=== PATIENT | female | born 1945 | race Caucasian/White ===

== ENCOUNTER 2017-04-17 14:19 | Outpatient (CLI) | payer MEDICARE, OTHER | END 2017-04-17 14:20 | disposition home or self-care (01) | DRG 554 | LOC: CONVCARE 14:19 | PROVIDERS: ATTEND Orthopaedic Surgery | DX: M17.11 Unilateral primary osteoarthritis, right knee (principal) | CPT/HCPCS: 73560 ==

== ENCOUNTER 2017-12-19 18:11 | Inpatient (IN) | payer MEDICARE, OTHER ==
[2017-12-19] MEDS: SODIUM CHLORIDE 0.9% FLUSH 10 ML SOL IV PRN ×2 (18:20→21:06)
[2017-12-19] MEDS ORDERED: DILTIAZEM 5 MG/ML SOL IV ONE ×3 (18:22→18:28)
[2017-12-19] MEDS ORDERED: SODIUM CHLORIDE 0.9% 1000ML 500 ML IV SCH (18:30)
[2017-12-19 18:34] LABS: BASOPHILS % (AUTO) 1 % (0-3); EOSINOPHILS % (AUTO) 3 % (0-9); HEMATOCRIT 42 % (35-47); HEMOGLOBIN 13.9 gm/dl (12.0-15.5); LYMPHOCYTES % (AUTO) 27.77 % (10-50); MEAN CORPUSCULAR HEMOGLOBIN 31.5 pg (27.0-32.0); MEAN CORPUSCULAR HGB CONC 32.9 gm/dl (32.0-36.0); MEAN CORPUSCULAR VOLUME 96 fL (81-99); MONOCYTES % (AUTO) 5.9 % (0-12)
[2017-12-19] MEDS ORDERED: METOPROLOL TARTRATE 5 MG/5 ML SOL IV ONE ×3 (18:38→18:59)
[2017-12-19] MEDS: METOPROLOL TARTRATE 5 MG/5 ML SOL IV SCH ×3 (18:40→18:55)
[2017-12-19 18:46] LABS: INR 1.11 (0.86-1.12)
[2017-12-19 18:52] LABS: ALKALINE PHOSPHATASE 87 IU/L (46-116); ALT 64 IU/L (14-63); AST 32 IU/L (15-37); BILIRUBIN,TOTAL 0.5 mg/dl (0.2-1.0); BLOOD UREA NITROGEN 12 mg/dl (7-18); CALCIUM 8.3 mg/dl (8.5-10.1); CARBON DIOXIDE 28.3 mEq/L (21-32); CHLORIDE 104 mMol/L (98-107); CREATININE 0.71 mg/dl (0.60-1.00); GLOM FILT RATE 81 mL/min (>60); GLUCOSE 110 mg/dl (74-106); POTASSIUM 3.8 mMol/L (3.5-5.1); SODIUM 141 mMol/L (136-145); TOTAL PROTEIN 6.6 gm/dl (6.4-8.2); TROP I < 0.017 ng/ml (0.000-0.056)
[2017-12-19] MEDS ORDERED: DILTIAZEM 5 MG/ML 125 MG in SODIUM CHLORIDE 0.9% 100 ML 100 ML IV SCH (19:45)
[2017-12-19] MEDS ORDERED: METOPROLOL TARTRATE 50 MG TAB PO SCH (21:00)
[2017-12-19] MEDS: ENOXAPARIN 40 MG SOL SC SCH (21:04)
[2017-12-19] MEDS: METOPROLOL TARTRATE 50 MG TAB PO SCH (21:05)
[2017-12-19] MEDS: OXYCODONE HYDROCHLORIDE 5 MG TAB PO PRN (21:05)
[2017-12-19] MEDS: CELECOXIB 100 MG CAP PO SCH (21:05)
[2017-12-19] MEDS: SODIUM CHLORIDE 0.9% 1000ML 1,000 ML IV SCH (21:11)
[2017-12-20] MEDS: ACETAMINOPHEN 500 MG 500 MG TAB PO PRN ×2 (00:18→13:29)
[2017-12-20] MEDS: SODIUM CHLORIDE 0.9% 1000ML 1,000 ML IV SCH (05:28)
[2017-12-20] MEDS ORDERED: LEVOTHYROXINE SODIUM 50 MCG TAB PO SCH (07:00)
[2017-12-20 07:55] LABS: BLOOD UREA NITROGEN 11 mg/dl (7-18); CALCIUM 7.9 mg/dl (8.5-10.1); CARBON DIOXIDE 31.5 mEq/L (21-32); CHLORIDE 107 mMol/L (98-107); CREATININE 0.73 mg/dl (0.60-1.00); GLOM FILT RATE 78 mL/min (>60); GLUCOSE 87 mg/dl (74-106); POTASSIUM 3.9 mMol/L (3.5-5.1); SODIUM 145 mMol/L (136-145); TROP I < 0.017 ng/ml (0.000-0.056)
[2017-12-20 08:13] VITALS: BP 155/82; PULSE 72; RESP 16; TEMP 98.5; O2SAT 98
[2017-12-20] MEDS ORDERED: PANTOPRAZOLE SODIUM 40 MG ECT PO SCH (09:00)
[2017-12-20] MEDS ORDERED: LEVOTHYROXINE 0.025MG 0.025 MG TAB PO SCH (09:00)
[2017-12-20] MEDS ORDERED: MULTIVITAMIN2 1 EA TAB PO SCH (09:00)
[2017-12-20] MEDS ORDERED: ASPIRIN 81 MG CHEWABLE CTB PO SCH (09:00)
[2017-12-20] MEDS ORDERED: OMEPRAZOLE 20 MG CAPSULE PO SCH (09:00)
[2017-12-20] MEDS ORDERED: DILTIAZEM ER 120 MG C24 PO SCH (09:00)
[2017-12-20] MEDS ORDERED: LUTEIN PO SCH (09:00)
[2017-12-20] MEDS ORDERED: DILTIAZEM HCL 120 MG PO SCH (09:00)
[2017-12-20] MEDS ORDERED: BUPROPION HCL 200 MG T12 PO SCH (09:00)
[2017-12-20] MEDS ORDERED: HRB PO SCH (09:00)
[2017-12-20] MEDS ORDERED: MAGNESIUM GLYCINATE 100 MG PO SCH (09:00)
[2017-12-20] MEDS ORDERED: [UNRECOGNIZED DRUG - OTHER] PO SCH (09:00)
[2017-12-20] MEDS ORDERED: SERTRALINE HYDROCHLORIDE 50 MG TAB PO SCH (09:00)
[2017-12-20] MEDS ORDERED: IRON PO SCH (09:00)
[2017-12-20] MEDS: ENOXAPARIN 40 MG SOL SC SCH (09:06)
[2017-12-20] MEDS: OXYCODONE HYDROCHLORIDE 5 MG TAB PO PRN (09:09)
[2017-12-20] MEDS: METOPROLOL TARTRATE 50 MG TAB PO SCH (09:10)
[2017-12-20] MEDS: CELECOXIB 100 MG CAP PO SCH (09:10)
== END 2017-12-20 14:00 | disposition home or self-care (01) | DRG 310 ==
LOC: ED 18:11 → ACUTE CARE 19:54
PROVIDERS: ADMIT Family Medicine; ATTEND Family Medicine
DX: I48.91 Unspecified atrial fibrillation (principal); Z96.651 Presence of right artificial knee joint; R07.9 Chest pain, unspecified; R00.2 Palpitations
CPT/HCPCS: 36415; 71045; 71275; 80048; 80053; 84484; 85025; 85378; 85610; 85730; 93005; 93012; 96365; 96374; 96375; 99223; 99238; 99285; J1650; Q9967; A9270-GY; J3490

== ENCOUNTER 2019-01-06 11:11 | Day surgery (SDC) | payer MEDICARE, OTHER ==
[2019-01-06] MEDS ORDERED: PROPOFOL 500 MG/50 ML EMU IV ONE (12:22)
[2019-01-06 13:51] VITALS: RESP 16
[2019-01-06 14:33] VITALS: BP 127/72; PULSE 64; TEMP 98.5; O2SAT 95
== END 2019-01-06 14:42 | disposition home or self-care (01) | DRG 951 ==
LOC: SURG 11:11
PROVIDERS: ATTEND Surgery
DX: Z12.11 Encounter for screening for malignant neoplasm of colon (principal); K57.32 Diverticulitis of large intestine without perforation or abscess without bleeding
CPT/HCPCS: J2704